=== PATIENT | male | born 1955 | race Caucasian/White ===

== ENCOUNTER 2017-01-05 14:14 | Emergency (ER) | payer BC, OTHER ==
[~2017-01-05] VITALS: Ht 180.3 cm; Wt 119.3 kg
[~2017-01-05 14:14] MED LIST: ASPI1TAB7 PO; ATOR10; CLOP75; GLUCTAB PO; LORTA5 PO; METO25; OMEGCAP21 PO; OMEP20CA5; TAMS0.4C67 PO; ZOFR4TAB3 SL
[2017-01-05 14:16] VITALS: BP 174/79; PULSE 66; RESP 16; TEMP 98; O2SAT 97
[2017-01-05] MEDS ORDERED: OMEGCAP PO (14:28)
[2017-01-05] MEDS ORDERED: LIPI20TA PO (14:28)
[2017-01-05] MEDS ORDERED: METF500T PO (14:28)
[2017-01-05] MEDS ORDERED: ASPI81CH7 CHEW (14:28)
[2017-01-05] MEDS ORDERED: METO50TA PO (14:28)
[2017-01-05] MEDS ORDERED: PLAV75TA29 PO (14:28)
[2017-01-05] MEDS ORDERED: ROBA500T PO (15:24)
--- NOTE | 2017-01-05 15:24 | PD ---
HPI Chief Complaint: Musculoskeletal Complaint Time Seen by Provider: 15:00 Travel History International Travel<30 days: No Contact w/Intl Traveler<30days: No Traveled to known affect area: No History of Present Illness HPI 61-year-old male presents emergency department for evaluation of right upper back pain times several months. Patient describes the pain as a muscle spasm and squeezing. It is unrelieved by [id number]-[id number] Motrin. The pain radiates from the neck and shoulder into the arm at times. He denies weakness of the extremity. He recently had x-rays of the neck which were negative per patient. He denies chest pain, palpitations, shortness of breath. PFSH Past Medical History Hx Anticoagulant Therapy: Yes (plavix) Arthritis: Yes Asthma: No Blood Disorders: No Anxiety: Yes Depression: No Heart Rhythm Problems: No Cancer: No Cardiovascular Problems: Yes (bypass, mi) High Cholesterol: Yes Chemotherapy: No Chest Pain: Yes Congestive Heart Failure: Yes COPD: No Cerebrovascular Accident: No Coronary Artery Disease: Yes Diabetes: Yes Patient Takes Glucophage: Yes (01-05-17 0800) Diminished Hearing: No Endocrine: No Gastrointestinal Disorders: Yes GERD: Yes Genitourinary: No Headaches: Yes Hepatitis: No Hiatal Hernia: No Hypertension: Yes Immune Disorder: No Musculoskeletal: No Neurologic: No Psychiatric: No Reproductive: No Respiratory: Yes Immunizations Current: Yes (shingles also) Migraines: No Myocardial Infarction: Yes Radiation Therapy: No Sleep Apnea: No Ulcer: No Tetanus Vaccination: < 5 Years Influenza Vaccination: Yes Past Surgical History Abdominal Surgery: No AICD: No Appendectomy: No Arteriovenous Shunt: No Cardiac Surgery: Yes Cholecystectomy: No Coronary Artery Bypass Graft: Yes Ear Surgery: No Endocrine Surgery: No Eye Surgery: No Genitourinary Surgery: No Gynecologic Surgery: No Insulin Pump: No Joint Replacement: No Oral Surgery: No Pacemaker: No Thoracic Surgery: No Tonsillectomy: Yes Other Surgery: Yes Social History Alcohol Use: No Tobacco Use: No Substance Use: No Allergies-Medications (Allergen,Severity, Reaction): Coded Allergies: No Known Allergies (Verified , 01/05/17) Reported Meds & Prescriptions Reported Meds & Active Scripts Active Reported Lipitor (Atorvastatin Calcium) 20 Mg Tab 20 Mg PO DAILY Metoprolol Tartrate 50 Mg Tab 50 Mg PO DAILY Plavix (Clopidogrel Bisulfate) 75 Mg Tab 75 Mg PO DAILY Aspirin Children's (Aspirin) 81 Mg Chew 81 Mg CHEW DAILY [place]-3 Fish Oil/Vitamin (Fish Oil-Cholecalciferol) 1,000-1,000 Mg Cap 2 Cap PO DAILY Metformin (Metformin HCl) 500 Mg Tab 500 Mg PO BIDPC With meals Review of Systems Except as stated in HPI: all other systems reviewed are Neg Physical Exam Narrative GENERAL: Well-nourished, well-developed patient. SKIN: Focused skin assessment warm/dry. HEAD: Normocephalic. EYES: No scleral icterus. No injection or drainage. NECK: Supple, trachea midline. No JVD or lymphadenopathy. Mild tenderness to the anterior aspect of the neck. Tenderness and muscle spasm to the right trapezius muscle. CARDIOVASCULAR: Regular rate and rhythm without murmurs, gallops, or rubs. RESPIRATORY: Breath sounds equal bilaterally. No accessory muscle use. GASTROINTESTINAL: Abdomen soft, non-tender, nondistended. MUSCULOSKELETAL: No cyanosis, or edema. Upper extremities have 5 out of 5 strength. Normal sensation. Equal hand grasp. BACK: without obvious deformity. No CVA tenderness. Data Data Last Documented VS Vital Signs Date Time Temp Pulse Resp B/P (MAP) Pulse Ox O2 Delivery O2 Flow Rate FiO2 01/05/17 14:16 98.0 66 16 174/79 (110) 97 MDM Medical Decision Making Medical Screen Exam Complete: Yes Emergency Medical Condition: Yes Differential Diagnosis Cervical strain versus trapezius muscle spasm versus cervical arthritis versus cervical radiculopathy Narrative Course 61-year-old male presents emergency department for evaluation of right upper back pain and muscle spasm times several months. The symptoms are unrelieved with [id number] Motrin. Patient denies paresthesias or weakness in the upper extremity. On exam he has a trapezius muscle spasm. She will be treated with muscle relaxers. Follow-up with primary care. Diagnosis Primary Impression: Trapezius muscle spasm Referrals: Primary Care Physician Additional Instructions: Take [id number]-[id number] Motrin 600-800 mg every 6-8 hours. Take the muscle relaxer medications as prescribed. Avoid heavy lifting or strenuous activity. Follow-up with her doctor. Scripts Methocarbamol (Robaxin) 500 Mg Tab 500 MG PO TID for Muscle Spasm, #15 TAB 0 Refills Prov: Laquita Morris 01/05/17 Disposition: 01 DISCHARGE HOME Condition: Stable Laquita Morris Jan 05, 2017 15:24
[2017-01-05] MEDS ORDERED: KETOROLAC TROMETHAMINE 60 MG/2 ML (IM) VIAL IM ONE (15:30)
== END 2017-01-05 15:30 | disposition home or self-care (01) ==
LOC: PHEFT 14:14
DX: M62.830 Muscle spasm of back (principal); E11.9 Type 2 diabetes mellitus without complications; E78.00 Pure hypercholesterolemia, unspecified; I11.0 Hypertensive heart disease with heart failure; I50.9 Heart failure, unspecified; I25.10 Atherosclerotic heart disease of native coronary artery without angina pectoris; I25.2 Old myocardial infarction; Z95.1 Presence of aortocoronary bypass graft; Z79.01 Long term (current) use of anticoagulants; K21.9 Gastro-esophageal reflux disease without esophagitis; Z79.84 Long term (current) use of oral hypoglycemic drugs
CPT/HCPCS: 99283; J1885